=== PATIENT | male | born 1980 | race Caucasian/White ===

== ENCOUNTER 2023-01-23 08:16 | Outpatient (OUT) | payer BC, SELFPAY ==
[2023-01-23 08:41] LABS: Basophils Absolute Auto 0.1 10^3/uL (0.0-0.1); Basophils Percent Auto 0.8 % (0.2-2.0); Eosinophils Absolute Auto 0.3 10^3/uL (0.0-0.7); Eosinophils Percent Auto 4.4 % (0.9-7.0); Hematocrit 42.7 % (42.0-54.0); Hemoglobin 14.7 g/dL (14.0-18.0); Immature Granulocytes Abs Auto 0.01 10^3/uL (0.00-0.03); Immature Granulocytes Pct Auto 0.1 % (0.0-0.5); Lymphocytes Absolute Auto 2.3 10^3/uL (1.2-3.8); Lymphocytes Percent Auto 31.1 % (20.5-60.0); Mean Corpuscular HGB Conc 34.4 g/dL (29.9-35.2); Mean Corpuscular Hemoglobin 31.3 pg (25.9-34.0); Mean Platelet Volume 8.8 fL (9.5-13.5); Monocytes Absolute Auto 0.7 10^3/uL (0.3-0.8); Monocytes Percent Auto 9.5 % (1.7-12.0); Neutrophils Absolute Auto 3.9 10^3/uL (1.4-6.5); Neutrophils Percent Auto 54.1 % (43.0-75.0); Platelet Count 192 10^3/uL (150-450); Red Blood Count 4.69 10^6/uL (4.70-6.10); Red Cell Distribution Width 13.2 % (11.0-15.0); White Blood Count 7.2 10^3/uL (4.0-11.0)
[2023-01-23 09:29] LABS: Alanine Aminotransferase 61 U/L (16-63); Albumin Globulin Ratio 1.2; Albumin Level 4.1 g/dL (3.4-5.0); Alkaline Phosphatase 58 U/L (46-116); Anion Gap 15.3; Aspartate Amino Transferase 26 U/L (15-37); BUN Creatinine Ratio 13.4; Bilirubin Total 0.7 mg/dL (0.2-1.0); Calcium 8.7 mg/dL (8.5-10.1); Carbon Dioxide 25.9 mmol/L (21.0-32.0); Chloride 99 mmol/L (98-107); Chol HDL Ratio 5.2; Cholesterol 235 mg/dL (<=200); Estimated GFR (African America >60 (>=60); Estimated GFR (Non-African Ame >60 (>=60); Globulin 3.3 g/dL; Glucose 101 mg/dL (74-106); HDL Cholesterol 45 mg/dL (40-60); Potassium 4.2 mmol/L (3.5-5.1); Sodium 136 mmol/L (136-145); Total Protein 7.4 g/dL (6.4-8.2); Triglycerides 97 mg/dL (<=150); VLDL CHOLESTEROL 19.4 mg/dL
== END 2023-01-23 08:17 | disposition home or self-care (01) ==
PROVIDERS: PCP Internal Medicine; Visit Provider Internal Medicine
DX: Z00.00 Encounter for general adult medical examination without abnormal findings (principal)
CPT/HCPCS: 36415; 80053; 80061; 85025

== ENCOUNTER 2024-01-29 09:46 | Outpatient (OUT) | payer OTHER, SELFPAY ==
[2024-01-29 10:52] LABS: Alanine Aminotransferase 64 U/L (16-63); Albumin Globulin Ratio 1.1; Albumin Level 3.5 g/dL (3.4-5.0); Alkaline Phosphatase 64 U/L (46-116); Anion Gap 12.7; Aspartate Amino Transferase 25 U/L (15-37); Bilirubin Total 0.4 mg/dL (0.2-1.0); Calcium 8.9 mg/dL (8.5-10.1); Carbon Dioxide 26.5 mmol/L (21.0-32.0); Chloride 102 mmol/L (98-107); Cholesterol 211 mg/dL (<=200); Estimated GFR (African America >60 (>=60); Estimated GFR (Non-African Ame >60 (>=60); Globulin 3.2 g/dL; Glucose 97 mg/dL (74-106); HDL Cholesterol 42 mg/dL (40-60); Potassium 4.2 mmol/L (3.5-5.1); Sodium 137 mmol/L (136-145); Total Protein 6.7 g/dL (6.4-8.2); Triglycerides 100 mg/dL (<=150)
[2024-01-29 11:20] LABS: Basophils Absolute Auto 0.1 10^3/uL (0.0-0.1); Basophils Percent Auto 0.8 % (0.2-2.0); Eosinophils Absolute Auto 0.4 10^3/uL (0.0-0.7); Hematocrit 41.2 % (42.0-54.0); Hemoglobin 13.7 g/dL (14.0-18.0); Immature Granulocytes Abs Auto 0.04 10^3/uL (0.00-0.03); Immature Granulocytes Pct Auto 0.4 % (0.0-0.5); Lymphocytes Absolute Auto 2.7 10^3/uL (1.2-3.8); Lymphocytes Percent Auto 29.3 % (20.5-60.0); Mean Corpuscular HGB Conc 33.3 g/dL (29.9-35.2); Mean Corpuscular Volume 93.2 fL (80.0-94.0); Mean Platelet Volume 8.8 fL (9.5-13.5); Monocytes Absolute Auto 0.8 10^3/uL (0.3-0.8); Monocytes Percent Auto 8.5 % (1.7-12.0); Neutrophils Absolute Auto 5.1 10^3/uL (1.4-6.5); Platelet Count 264 10^3/uL (150-450); Red Blood Count 4.42 10^6/uL (4.70-6.10); Red Cell Distribution Width 13.6 % (11.0-15.0)
== END 2024-01-29 09:47 | disposition home or self-care (01) ==
PROVIDERS: PCP Internal Medicine; Visit Provider Internal Medicine
DX: Z00.00 Encounter for general adult medical examination without abnormal findings (principal)
CPT/HCPCS: 36415; 80053; 80061; 85025

== ENCOUNTER 2024-07-19 08:03 | Outpatient (OUT) | payer OTHER, SELFPAY ==
--- OUTSIDE RECORDS SUMMARY | 2024-07-19 08:17 | XMS_ITS | CCD ---
Author Organization [facility] Care Team Providers Care Sales Mgr Name Role Phone LOS, DR BAIRD Admitting Unavailable LOS, DR BAIRD Primary Care Unavailable LOS, DR BAIRD Consulting Michael CASTAÑEDA, DR BAIRD Attending Unavailable LOS, DR BAIRD Admitting Unavailable LOS, DR BAIRD Consulting Unavailable LOS, DR BAIRD Attending Unavailable SPENCER, DR LEONARD Dillard Consulting Michael Castañeda, Ralph Unavailable Medications Current Medications Medication Drug Class(es) Dates Sig (Normalized) Sig (Original) amLODIPine 5 mg oral tablet (4 sources) Dihydropyridine Calcium Channel Bhumika Start: 01-28-2024 take 5 mg by mouth once daily Amlodipine Active 5 MG PO Daily January 28, 2024 12:00am take 1 tablet by mouth once artemio y amLODIPine Besylate 5 MG TAKE 1 TABLET BY MOUTH EVERY DAY for 90 Active atorvastatin 80 mg oral tablet (4 sources) HMG-CoA Reductase Inhibitor Start: 01-28-2024 take 80 mg by mouth once daily Atorvastatin Active 80 MG PO Daily January 28, 2024 12:00am take 1 tablet by mar th every twenty-four hours Atorvastatin Calcium 80 MG 1 tablet Oral ly Once a day for 90 days Active take 1 tablet by mar th once daily in the evening Atorvastatin Calcium 40 MG TAKE 1 TABLET BY MOUTH EVERY EVENING Active benazepril hydrochloride 20 mg oral tablet (7 sources) Angiotensin Converting Enzyme Inhibitor Start: 01-28-2024 take 20 mg by mouth once daily Benazepril Active 20 MG PO Daily January 28, 2024 12:00am Start: 12-30-2021 take 1 tablet by mouth once da yamilet Problems Active Problems Problem Classification Problem Date Documented Da te Episodic/Chronic Disorders of lipid metabolism (5 sources) Familial hypercholesterole kerri; Translations: [Familial hypercholesterole kerri] Resolved: 11-07-2021 Chronic Essential hypertension (6 sources) Essential hypertension; Translations: [Essential (primary) hypertension] Chronic Other nutritional; endocrine; and metabolic disorders (3 sources) Obesity caused by energy imbalance; Translations: [Other obesity due to excess calories] Chronic Other nutritional; endocrine; and metabolic disorders (3 sources) Body mass index 30+ - obesity; Translations: [Body mass index (BMI) 34.0-34.9, adult] Chronic Other nutritional; endocrine; and metabolic disorders (1 source) Other obesity due to excess calories Chronic Other nutritional; endocrine; and metabolic disorders (1 source) Body mass index (BMI) 34.0-34.9, adult Chronic Substance-related disorders (4 sources) Nicotine dependence; Translations: [Nicotine dependence, cigarettes, uncomplicated] Chronic Past or Other Problems Problem Classification Problem Date Documented Da te Episodic/Chronic Other and unspecified benign neoplasm (4 sources) Benign lipomatous neoplasm of skin and subcutaneous tissue of trunk; Translations: [ERIKA LIPOMAT NEOPLSM SKIN SUBQ TRUNK] Onset: 12-14-2020 Episodic Results Test Name Value Interpretation Reference Range Facil ity CBC AUTO DIFFon 11-08-2021 BASO # 0.1 103/ul Normal 0.0-0.1 [facility] Comment on above: Performed By: #### C BC #### [facility] [address] [place] [address] Dr. Nestor Garcia Basophils/100 WBC (Bld) 0.9 % Normal 0.2-2.0 [facility] Comment on above: Performed By: #### C BC #### [facility] [address] [place] [address] Dr. Nestor Garcia EO # 0.4 103/ul Normal 0.0-0.7 [facility] Comment on above: Performed By: #### C BC #### [facility] [address] [place] [address] Dr. Nestor Garcia Eosinophils/100 WBC (Bld) 5.1 % Normal 0.9-7.0 [facility] Comment on above: Performed By: #### C BC #### [facility] [address] [place] [address] Dr. Nestor Garcia Erythrocyte distribution width (RBC) [Ratio] 13.3 % Normal 11.0-15.0 [facility] Comment on above: Performed By: #### C BC #### [facility] [address] [place] [address] Dr. Nestor Garcia Hematocrit (Bld) [Volume fraction] 43.9 % Normal 42.0-54.0 [facility] Comment on above: Performed By: #### C BC #### [facility] [address] [place] [address] Dr. Nestor Garcia Hemoglobin (Bld) [Mass/Vol] 14.6 g/dL Normal 14.0-18.[address] [facility] Comment on above: Performed By: #### C BC #### [facility] [address] [place] [address] Dr. Nestor Garcia IG # 0.02 10e3/ul Normal 0.00-0.03 [facility] Comment on above: Performed By: #### C BC #### [facility] [address] [place] [address] Dr. Nestor Garcia IG % 0.3 % Normal 0.0-0.5 [facility] Comment on above: Performed By: #### C BC #### [facility] [address] [place] [address] Dr. Nestor Garcia LYMPH # 2.4 103/ul Normal 1.2-3.[address] [facility] Comment on above: Performed By: #### C BC #### [facility] [address] [place] [address] Dr. Nestor Garcia Lymphocytes/100 WBC (Bld) 35.4 % Normal 20.5-60.0 [facility] Comment on above: Performed By: #### C BC #### [facility] [address] [place] [address] Dr. Nestor Garcia MANUAL DIFF REQ NO Normal [facility] Comment on above: Performed By: #### C BC #### [facility] [address] [place] [address] Dr. Nestor Garcia MCH (RBC) [Entitic mass] 31.5 pg Normal 25.9-34.0 [facility] Comment on above: Performed By: #### C BC #### [facility] [address] [place] [address] Dr. Nestor Garcia MCHC (RBC) [Mass/Vol] 33.3 g/dL Normal 29.9-35.2 [facility] Comment on above: Performed By: #### C BC #### [facility] [address] [address] [address] Nestor Garcia MCV (RBC) [Entitic vol] 94.8 fL Critically high 80.0-94.0 [facility] Comment on above: Performed By: #### C BC #### [facility] [address] [address] [address] Nestor Garcia MONO # 0.7 103/ul Normal 0.3-0.8 [facility] Comment on above: Performed By: #### C BC #### [facility] [address] [place] [address] Dr. Nestor Garcia Monocytes/100 WBC (Bld) 9.6 % Normal 1.7-12.0 [facility] Comment on above: Performed By: #### C BC #### [facility] [address] [place] [address] Dr. Nestor Garcia NEUT # 3.4 103/ul Normal 1.4-6.5 [facility] Comment on above: Performed By: #### C BC #### [facility] [address] [place] [address] Dr. Nestor Garcia Neutrophils/100 WBC (Bld) 48.7 % Normal 43.0-75.0 [facility] Comment on above: Performed By: #### C BC #### [facility] [address] [place] [address] Dr. Nestor Garcia Platelet mean volume (Bld) [Entitic vol] 8.8 fL Critically low 9.5-13.[address] [facility] Comment on above: Performed By: #### C BC #### [facility] [address] [place] [address] Dr. Nestor Garcia PLT 212 103/ul Normal 150-[address] [facility] Comment on above: Performed By: #### C BC #### [facility] [address] [place] [address] Dr. Nestor Garcia RBC 4.63 106/ul Critically low 4.70-6.10 [facility] Comment on above: Performed By: #### C BC #### [facility] [address] [address] [address] Nestor Garcia WBC 6.9 103/ul Normal 4.0-11.0 [facility] Comment on above: Performed By: #### C BC #### [facility] [address] [address] [address] Nestor Garica LIPID PROFILEon 11-08-2021 CHOL-HDL RATIO NORM SEE BELOW Normal [facility] Comment on above: Result Comment: 3.3 - 4.4 LOW RISK 4.4 - 7.1 AVERAGE RISK 7.1 - 11.0 MODERATE RISK >11.0 HIGH RISK Performed By: #### L IPID, CMP #### [facility] [address] [address] [address] Nestor Garcia Cholesterol [Mass/Vol] 197 mg/dL Normal <=200 [facility] Comment on above: Performed By: #### L IPID, CMP #### [facility] [address] [address] [address] Nestor Garcia Cholesterol in HDL [Mass/Vol] 37 mg/dL Critically low 40-60 [facility] Comment on above: Performed By: #### L IPID, CMP #### [facility] [address] [address] [address] Nestor Garcia Cholesterol in LDL [Mass/Vol] 141.2 mg/dL Normal [facility] Comment on above: Performed By: #### L IPID, CMP #### [facility] [address] [address] [address] Nestor Garcia Cholesterol.total/C holesterol in HDL [Mass ratio] 5.3 {ratio} Normal [facility] Comment on above: Performed By: #### L IPID, CMP #### [facility] [address] [address] [address] Nesotr Garcia HDL NORMAL > or = 60 mg/dl - LO W CARDIOVASCULAR RISK <40 mg/dl - HIGH CARDIOVASCULAR RISK Normal [facility] Comment on above: Performed By: #### L IPID, CMP #### [facility] [address] [place] [address] Dr. Nestor Garcia LDL CALC NORMAL SEE BELOW Normal [facility] Comment on above: Result Comment: <100 mg/dl OPTIMAL 100 - 129 mg/dl NEAR OR ABOVE OPTIMAL 130 - 159 mg/dl BORDERLINE HIGH 160 - 189 mg/dl HIGH >190 mg/dl VERY HIGH Performed By: #### L IPID, CMP #### [facility] [address] [address] [address] Nestor Garcia Triglyceride [Mass/Vol] 94 mg/dL Normal <=150 [facility] Comment on above: Performed By: #### L IPID, CMP #### [facility] [address] [place] [address] Dr. Nestor Garcia VLDL CALC 18.8 mg/dL Normal [facility] Comment on above: Performed By: #### L IPID, CMP #### [facility] [address] [place] [address] Dr. Nestor Garcia PROF 14(COMP METB)on 022 Albumin [Mass/Vol] 3.9 g/dL Normal 3.4-5.0 [facility] Comment on above: Performed By: #### L IPID, CMP #### [facility] [address] [place] [address] Dr. Nestor Garcia Albumin/Globulin [Mass ratio] 1.2 {ratio} Normal [facility] Comment on above: Performed By: #### L IPID, CMP #### [facility] [address] [place] [address] Dr. Nestor Garcia ALP [Catalytic activity/Vol] 51 U/L Normal 46-[address] [facility] Comment on above: Performed By: #### L IPID, CMP #### [facility] [address] [place] [address] Dr. Nestor Garcia ALT [Catalytic activity/Vol] 59 U/L Normal 16-63 [facility] Comment on above: Performed By: #### L IPID, CMP #### [facility] [address] [place] [address] Dr. Nestor Garcia Anion gap [Moles/Vol] 10.4 mmol/L Normal [facility] Comment on above: Performed By: #### L IPID, CMP #### [facility] [address] [place] [address] Dr. Nestor Garcia AST [Catalytic activity/Vol] 30 U/L Normal 15-37 [facility] Comment on above: Performed By: #### L IPID, CMP #### [facility] [address] [place] [address] Dr. Nestor Garcia Bilirubin [Mass/Vol] 0.5 mg/dL Normal 0.2-1.[address] [facility] Comment on above: Performed By: #### L IPID, CMP #### [facility] [address] [place] [address] Dr. Nestor Garcia Calcium [Mass/Vol] 9.1 mg/dL Normal 8.5-10.1 [facility] Comment on above: Performed By: #### L IPID, CMP #### [facility] [address] [place] [address] Dr. Nestor Garcia Chloride [Moles/Vol] 103 mmol/L Normal 98-107 [facility] Comment on above: Performed By: #### L IPID, CMP #### [facility] [address] [place] [address] Dr. Nestor Garcia CO2 [Moles/Vol] 28.8 mmol/L Normal 21.0-32.0 [facility] Comment on above: Performed By: #### L IPID, CMP #### [facility] [address] [place] [address] Dr. Nestor Garcia Creatinine [Mass/Vol] 0.78 mg/dL Normal 0.70-1.[address] [facility] Comment on above: Performed By: #### L IPID, CMP #### [facility] [address] [place] [address] Dr. Nestor Garcia EGFR-AF BHUTANESE >60 Normal >=60 [facility] Comment on above: Performed By: #### L IPID, CMP #### [facility] [address] [place] [address] Dr. Nestor Garcia EGFR-NON AF BHUTANESE >60 Normal >=60 [facility] Comment on above: Performed By: #### L IPID, CMP #### [facility] [address] [address] [address] Nestor Garcia Globulin (S) [Mass/Vol] 3.3 g/dL Normal [facility] Comment on above: Performed By: #### L IPID, CMP #### [facility] [address] [address] [address] Nestor Garcia Glucose [Mass/Vol] 105 mg/dL Normal 74-106 [facility] Comment on above: Performed By: #### L IPID, CMP #### [facility] [address] [place] [address] Dr. Nestor Garcia Potassium [Moles/Vol] 4.2 mmol/L Normal 3.5-5.1 [facility] Comment on above: Performed By: #### L IPID, CMP #### [facility] [address] [place] [address] Dr. Nestor Garcia Protein [Mass/Vol] 7.2 g/dL Normal 6.4-8.2 [facility] Comment on above: Performed By: #### L IPID, CMP #### [facility] [address] [place] [address] Dr. Nestor Garcia Sodium [Moles/Vol] 138 mmol/L Normal 136-145 [facility] Comment on above: Performed By: #### L IPID, CMP #### [facility] [address] [place] [address] Dr. Nestor Garcia Urea nitrogen [Mass/Vol] 17.0 mg/dL Normal 7.0-18.0 [facility] Comment on above: Performed By: #### L IPID, CMP #### [facility] [address] [place] [address] Dr. Nestor Garcia Urea nitrogen/Creatinine [Mass ratio] 21.8 mg/mg Normal [facility] Comment on above: Performed By: #### L IPID, CMP #### [facility] [address] [address] [address] Nestor Garcia CHESTon 12-16-2020 US CHEST EXAM: US CHEST HISTORY: Lipoma of skin and subcutaneous tissue of trunk ; palpable lump right anterior lower ribs COMPARISON: None. TECHNIQUE: Ultrasound evaluation of the anterior chest soft tissues. FINDINGS: Within the subcutaneous fat at the site of the palpable lump is a homogeneous 7.5 x 4.5 x 1.0 cm oval fatty structure with nearly imperceptible wall. No appreciable soft tissue component or significant vascularity. IMPRESSION: 1. Patient's palpable lump appears to correspond to a subcutaneous lipoma. No appreciable soft tissue component to suggest liposarcoma. Electronically authenticated by: LEONARD PALMER Date: 2020-12-16 07:35 Normal [facility] Vital Signs Date Time Vital Sign Value Performing Clinician Facility 01-28-2024 14:30-0400 Body height 187.96 cm [facility] 01-28-2024 14:30-0400 Body mass index (BMI) [Ratio] 35.4 kg/m2 [facility] 01-28-2024 14:30-0400 Body weight 124.96 kg [facility] 01-28-2024 14:30-0400 Diastolic blood pressure 90 mm[Hg] [facility] 01-28-2024 14:30-0400 Heart rate 98 /min [facility] 01-28-2024 14:30-0400 Respiratory rate 12 /min [facility] 01-28-2024 14:30-0400 Systolic blood pressure 141 mm[Hg] [facility] 01-22-2023 14:30-0400 Body height 185.42 cm [facility] Other [facility] Other 01-22-2023 14:30-0400 Body mass index (BMI) [Ratio] 34.09 kg/m2 Ralph Novitaz Other [facility] Other 01-22-2023 14:30-0400 Body weight 117.21 kg [facility] Other [facility] Other 01-22-2023 14:30-0400 Diastolic blood pressure 91 mm[Hg] Ralph Los Other [facility] Other 01-22-2023 14:30-0400 Respiratory rate 12 /min Ralph Los Other [facility] Other 01-22-2023 14:30-0400 Systolic blood pressure 149 mm[Hg] Ralph Castañeda Other [facility] Other Encounters Encounter Date Encounter Type Care Provider Facility Start: 01-28-2024 End: 01-28-[address] [facility] Work Phone: Start: 01-28-2024 End: 01-28-2024 Encounter for general adult medical examination without abnormal findings [facility] Start: 01-28-2024 End: 01-28-2024 Patient encounter procedure [facility] Work Phone: Start: 04-13-2023 End: 04-13-2023 ambulatory Ralph Castañeda Other [facility] Other Start: 04-13-2023 Telephone encounter Ralph MARTELL [facility] Start: 01-26-2023 End: 01-26-2023 ambulatory Ralph Castañeda Other [facility] Other Start: 01-26-2023 Telephone encounter Ralph MARTELL [facility] Start: 01-22-2023 End: 01-22-2023 ambulatory Ralph Castañeda Other [facility] Other Start: 01-22-2023 Encounter for genera l adult medical examination without abnormal findings Ralph Castañeda [facility] Start: 01-22-2023 Periodic preventive med est patient 40-64yrs Ralph Castañeda [facility] Start: 11-12-2021 Encounter for genera l adult medical examination without abnormal findings DR RALPH CASTAÑEDA [facility] Start: 11-08-2021 End: 11-09-[address] RALPH CASTAÑEDA Facility:[facility] Start: 11-08-2021 End: 11-09-2021 Encounter for general adult medical examination without abnormal findings DR RALPH CASTAÑEDA Facility:[facility] Start: 12-14-2020 End: 12-15-[address] RALPH CASTAÑEDA Facility:[facility] Plan of Treatment Date Care Activity Detail Author Comprehensive metabo lic 1999 panel - Serum or Plasma [facility] enter [facility] Immunizations Immunization Date Immunization Notes Care Provider Fa cility 11-23-2020 COVID-19 Vaccine Moncho ssen - Documentation Purposes Only Ralph Castañeda Other [facility] Payers Date Payer Category Payer Unknown [id number] [id number] 1980 Unknown [id number] [id number] 1960 Unknown [id number] Unknown [facility] [id number] 13 [id number] Social History Date Type Detail Facility Sex Assigned At [facility] Other Start: 1980 Sex Assigned At Male F [facility] Evaluation note 04-13-2023 Note Date & Type Note Facility 04-13-2023 Evaluation note Encounter Date Diagnosis Assessment Notes Mar, Familial hypercholesterolemia (ICD-10 - E78.01) [facility] Other Evaluation note 01-22-2023 Note Date & Type Note Facility 01-22-2023 Evaluation note Encounter Date Diagnosis Assessment Notes Dec, Wellness examination (ICD-10 - Z00.00) Healthy diet and exercise. Reviewed age-appropriate preventive testing recommended. Dec, Familial hypercholesterolemia (ICD-10 - E78.01) Instructed on diet and exercise with continued statin therapy.Discusse d the beneficial effects of lowering cholesterol in reducing the risk for cerebrovascular and cardiovascular disease. Dec, Primary hypertension (ICD-10 - I10) This patient is instructed to consume a healthy, low-fat, low-salt diet. They are also encouraged to continue exercise to achieve/maintain a normal BMI. 28 Kurt, 2023 Other obesity due to excess calories (ICD-10 - E66.09) This patient has been instructed on a low-fat, high-fiber diet. They are instructed to reduce calories, portion sizes and snacks. It is recommended that they exercise for 30 minutes, 3-5 times weekly. Dec, Body mass index [BMI] 34.0-34.9, adult (ICD-10 - Z68.34) Dec, Cigarette nicotine dependence without complication (ICD-10 - F17.210) This patient has been encouraged to quit tobacco use immediately. They are aware of the hazards associated with tobacco use, including but not limited to respiratory infections, vascular disease and cancers. [facility] Other Evaluation note Note Date & Type Note Facility Evaluation note No Information [facility] Other Evaluation note Note Date & Type Note Facility Evaluation note Diagnosis Onset Date Hypertension acute Wellness examination noneact [facility] Work Phone: History general Narrative - Reported Note Date & Type Note Facility History general Narrative - Reported Type Medical History Essential (primary) hypertension Medical History Benign lipomatous ne oplasm of skin and subcutaneous tissue of trunk Medical History Pure hypercholesterolemia, unspe cified Surgical History TONSILLECTOMY Hospitalization History SEE SURGICAL HX [facility] Other Summary Purpose Family History Relationship Condition Age at Onset Recorded Date/T shawn father Malignant neoplasm Unknown Heart disease Unknown Hypertension Unknown Advance Directives Advance Directive Response Recorded Date/ Time Advance Directives No July 26, 2023 3:26pm Chief Complaint and Reason for Visit Chief Complaint Wellness Reason for Visit Hypertension Wellness examination Additional Source Comments (unrecognized sect ion and content) No Status Records Found INFORMATION SOURCE (unrecogn ized section and content) DATE CREATED AUTHOR 11/15/2021 [facility] REASON FOR VISIT (unrecogniz ed section and content) [facility] Results[facility]ill Care Teams (unrecognized sec tion and content) Team Status: Active Member Role Status Dates Ralph Castañeda DO Primary Care Provider Active Team Status: Inactive Member Role Status Dates Ralph Castañeda DO Primary Care Provide r, Attending Provider Active Start: January 28, 2024 End: January 28, 2024 Goals (unrecognized section and content) Goals may be documented in a n alternate section FOR RECORDS PERTAINING TO PATIENTS WHO ARE OR HAVE BEEN ENROLLED IN A CHEMICAL DEPENDENCY/SUBSTANCEABUSE PROGRAM, SOME INFORMATION MAY BE OMITTED. This clinical summary was aggregated from multiple sources. Caution should be exercised in using it in the provision of clinical care. This summary normalizes information from multiple sources, and as a consequence, information in this document may materially change the coding, format and clinical context of patient data. In addition, data may be omitted in some cases. CLINICAL DECISIONS SHOULD BE BASED ON THE PRIMARY CLINICAL RECORDS. [facility] [employer] [facility]. provides no warranty or guarantee of the accuracy or completeness of information in this document.
[2024-07-19 08:22] LABS: Basophils Absolute Auto 0.1 10^3/uL (0.0-0.1); Basophils Percent Auto 0.9 % (0.2-2.0); Eosinophils Absolute Auto 0.5 10^3/uL (0.0-0.7); Hematocrit 45.2 % (42.0-54.0); Hemoglobin 15.1 g/dL (14.0-18.0); Immature Granulocytes Abs Auto 0.03 10^3/uL (0.00-0.03); Immature Granulocytes Pct Auto 0.4 % (0.0-0.5); Lymphocytes Absolute Auto 2.4 10^3/uL (1.2-3.8); Lymphocytes Percent Auto 29.3 % (20.5-60.0); Mean Corpuscular HGB Conc 33.4 g/dL (29.9-35.2); Mean Corpuscular Hemoglobin 31.7 pg (25.9-34.0); Mean Corpuscular Volume 94.8 fL (80.0-94.0); Mean Platelet Volume 8.8 fL (9.5-13.5); Monocytes Absolute Auto 0.7 10^3/uL (0.3-0.8); Monocytes Percent Auto 8.8 % (1.7-12.0); Neutrophils Absolute Auto 4.5 10^3/uL (1.4-6.5); Neutrophils Percent Auto 54.6 % (43.0-75.0); Platelet Count 236 10^3/uL (150-450); Red Blood Count 4.77 10^6/uL (4.70-6.10); Red Cell Distribution Width 13.4 % (11.0-15.0); White Blood Count 8.2 10^3/uL (4.0-11.0)
== END 2024-07-19 08:04 | disposition home or self-care (01) ==
PROVIDERS: PCP Internal Medicine; Visit Provider Internal Medicine
DX: D64.9 Anemia, unspecified (principal)
CPT/HCPCS: 36415; 85025

== ENCOUNTER 2025-02-09 13:11 | Outpatient (OUT) | payer BC, SELFPAY ==
--- OUTSIDE RECORDS SUMMARY | 2025-02-09 13:17 | XMS_ITS | CCD ---
Author Organization [facility] Care Team Providers Care Complaint Analyst Name Role Phone DR RALPH CASTAÑEDA Admitting Unavailable MADDY, DR BAIRD Primary Care Unavailable MADDY, DR BAIRD Consulting Unavailable MADDY, DR BAIRD Attending Unavailable MADDY, DR BAIRD Admitting Unavailable MADDY, DR BAIRD Consulting Unavailable MADDY, DR BAIRD Attending Unavailable SPENCER, DR LEONARD Dillard Consulting Ralph Mccabe Unavailable Ralph Castañeda DO Primary Care Provider [phone] Ralph Castañeda DO Attending Provider [phone] Medications Current Medications Medication Drug Class(es) Dates Sig (Normalized) Sig (Original) amLODIPine 10 mg oral tablet (10 sources) Dihydropyridine Calcium Channel Bhumika Start: 08-04-2024 take 1 tablet by mouth once daily Amlodipine 10 mg tablet Active 10 MG PO Daily August 04, 2024 4:04pm Complies with drug therapy Start: 04-20-2024 End: 08-04-2024 take 1 tablet by mouth once daily Amlodipine 5 mg tablet Discontinued 0 .ROUTE .COMPLEX April 20, 2024 7:16am August 04, 2024 4:04pm TAKE 1 TABLET BY MOUTH EVERY DAY Start: 01-28-2024 End: 04-20-2024 take 1 tablet by mouth once daily Amlodipine 5 mg tablet Discontinued 5 MG PO Daily January 28, 2024 12:00am April 20, 2024 7:16am take 1 tablet by mar th once daily amLODIPine Besylate 5 MG TAKE 1 TABLET BY MOUTH EVERY DAY for 90 Active atorvastatin 80 mg oral tablet (8 sources) HMG-CoA Reductase Inhibitor Start: 04-21-2024 take 1 tablet by mouth once daily Atorvastatin 80 mg tablet Active 0 .ROUTE .COMPLEX April 21, 2024 6:52am TAKE 1 TABLET BY MOUTH EVERY DAY FOR 90 DAYS Complies with drug therapy Start: 01-28-2024 End: 04-21-2024 take 1 tablet by mouth once daily Atorvastatin 80 mg tablet Discontinued 80 MG PO Daily January 28, 2024 12:00am April 21, 2024 6:52am take 1 tablet by mar th every twenty-four hours Atorvastatin Calcium 80 MG 1 tablet Orally Once a day for 90 days Active take 1 tablet by mar th once daily in the evening Atorvastatin Calcium 40 MG TAKE 1 TABLET BY MOUTH EVERY EVENING Active benazepril hydrochloride 20 mg oral tablet (11 sources) Angiotensin Converting Enzyme Inhibitor Start: 04-20-2024 take 1 tablet by mouth once daily Benazepril 20 mg tablet Active 0 .ROUTE .COMPLEX April 20, 2024 7:16am TAKE 1 TABLET BY MOUTH EVERY DAY Complies with drug therapy Start: 01-28-2024 End: 04-20-2024 take 1 tablet by mouth once daily Benazepril 20 mg tablet Discontinued 20 MG PO Daily January 28, 2024 12:00am April 20, 2024 7:16am Start: 12-30-2021 take 1 tablet by mar th once daily Completed/Discontinued Medications Medication Drug Class(es) Dates Sig (Normalized) Sig (Original) amoxicillin 875 mg oral tablet (2 sources) Penicillin-class Antibacterial Start: 08-04-2024 End: 01-26-2025 take 1 tablet by mouth twice daily Amoxicillin 875 mg tablet Discontinued 875 MG PO Twice daily 08 01August 04, 2024 1:00am January 26, 2025 2:30pm etodolac 500 mg oral tablet (2 sources) Nonsteroidal Anti-inflammatory Drug Start: 05-29-2024 End: 08-04-2024 take 1 tablet by mouth twice daily Etodolac 500 mg tablet Discontinued 500 MG PO Twice daily May 29, 2024 1:00am August 04, 2024 3:58pm valACYclovir 1000 mg oral tablet (2 sources) Herpesvirus Nucleoside Analog DNA Polymerase Inhibitor, Herpes Simplex Virus Nucleoside Analog DNA Polymerase Inhibitor, Herpes Zoster Virus Nucleoside Analog DNA Polymerase Inhibitor Start: 05-29-2024 End: 08-04-2024 Valacyclovir 1 gram tablet Discontinued 1000 MG PO Three times daily 15 01May 29, 2024 1:00am August 04, 2024 3:58pm Problems Active Problems Problem Classification Problem Date Documented Da te Episodic/Chronic Deficiency and other anemia (2 sources) Anemia; Translations: [Anemia, unspecified] 06-10-2024 Episodic Comment on above: Mild anemia (13.7), 44y/o in Jul, 2024 - colonoscopy Disorders of lipid metabolism (5 sources) Familial hypercholesterolemi a; Translations: [Familial hypercholesterolemi a] Resolved: 11-07-2021 Chronic Essential hypertension (11 sources) Essential hypertension; Translations: [Essential (primary) hypertension] [...] Body mass index (BMI) 34.0-34.9, adult Chronic Other nutritional; endocrine; and metabolic disorders (3 sources) Obesity; Translations: [Obesity, unspecified] 01-28-2024 Chronic Other nutritional; endocrine; and metabolic disorders (1 source) Obesity, unspecified; Translations: [Obesity, unspecified] 08-04-2024 Chronic Other screening for suspected conditions (not mental disorders or infectious disease) (1 source) Patient encounter status; Translations: [Encounter for screening for malignant neoplasm of colon] 01-26-2025 Episodic Residual codes; unclassified (3 sources) At risk of apnea; Translations: [Other specified personal risk factors, not elsewhere classified] 01-28-2024 Episodic Residual codes; unclassified (1 source) Other specified personal risk factors, not elsewhere classified; Translations: [Other specified conditions influencing health status] 08-04-2024 Episodic Substance-related disorders (4 sources) Nicotine dependence; Translations: [Nicotine dependence, cigarettes, uncomplicated] Chronic Viral infection (3 sources) Herpes zoster; Translations: [Zoster with other complications] 05-29-2024 Episodic Past or Other Problems Problem Classification Problem Date Documented Da te Episodic/Chronic Other and unspecified benign neoplasm (4 sources) Benign lipomatous neoplasm of skin and subcutaneous tissue of trunk; Translations: [ERIKA LIPOMAT NEOPLSM SKIN SUBQ TRUNK] Onset: 12-14-2020 Episodic Results Test Name Value Interpretation Reference Range Facil ity Basophils Auto (Bld) [#/Vol] on 07-19-2024 Basophils (Bld) [#/Vol] Automated basophil count 0.0-0.1 [facility] Basophils/100 WBC Auto (Bld) on 07-19-2024 Basophils/100 WBC (Bld) Automated basophil % 0.2-2.0 [facility] Eosinophils/100 WBC Auto (Bl d)on 07-19-2024 Eosinophils/100 WBC (Bld) Automated eosinophil % 0.9-7.0 [facility] Erythrocyte distribution wid th Auto (RBC) [Ratio]on 07-19-2024 Erythrocyte distribution width (RBC) [Ratio] Erythrocyte distribution width [Ratio] by Automated count 11.0-15.0 [facility] Hematocrit Auto (Bld) [Volum e fraction]on 07-19-2024 Hematocrit (Bld) [Volume fraction] Hematocrit [Volume Fraction] of Blood by Automated count 42.0-54.0 [facility] Hemoglobin [Mass/volume] in Bloodon 07-19-2024 Hemoglobin (Bld) [Mass/Vol] Hemoglobin [Mass/volume] in Blood 14.0-18.0 [facility] - Hematology and Cell countson 07-19-2024 Immature granulocytes/100 WBC (Bld) 0.4 % 0.0-0.5 [facility] Leukocytes [#/volume] correc raina for nucleated erythrocytes in Blood by Automated counon 07-19-2024 WBC corrected for nucl RBC Auto (Bld) [#/Vol] Leukocytes [#/volume] corrected for nucleated erythrocytes in Blood by Automated coun 4.0-11.0 [facility] Lymphocytes Auto (Bld) [#/Vo l]on 07-19-2024 Lymphocytes (Bld) [#/Vol] Lymphocytes [#/volume] in Blood by Automated count 1.2-3.8 [facility] Lymphocytes/100 WBC Auto (Bl d)on 07-19-2024 Lymphocytes/100 WBC (Bld) Lymphocytes/100 leukocytes in Blood by Automated count 20.5-60.0 [facility] MCH Auto (RBC) [Entitic mass ]on 07-19-2024 MCH (RBC) [Entitic mass] MCH [Entitic mass] by Automated count 25.9-34.0 [facility] MCHC Auto (RBC) [Mass/Vol]on 07-19-2024 MCHC (RBC) [Mass/Vol] MCHC [Mass/volume] by Automated count 29.9-35.2 [facility] MCV Auto (RBC) [Entitic vol] on 07-19-2024 MCV (RBC) [Entitic vol] MCV [Entitic volume] by Automated count High 80.0-94.0 [facility] Monocytes Auto (Bld) [#/Vol] on 07-19-2024 Monocytes (Bld) [#/Vol] Automated blood monocyte count 0.3-0.8 [facility] Monocytes/100 WBC Auto (Bld) on 07-19-2024 Monocytes/100 WBC (Bld) Automated monocyte % 1.7-12.0 [facility] Neutrophils Auto (Bld) [#/Vo l]on 07-19-2024 Neutrophils (Bld) [#/Vol] Neutrophils [#/volume] in Blood by Automated count 1.4-6.5 [facility] Neutrophils/100 WBC Auto (Bl d)on 07-19-2024 Neutrophils/100 WBC (Bld) Automated neutrophil % 43.0-75.0 [facility] No Panel Informationon 07-19 Eosinophils # (Auto) 0.5 10 3/uL 0.0-0.7 [facility] Immature Granulocyte # (Auto) 0.03 10 3/uL 0.00-0.03 [facility] Platelet mean volume Auto (B ld) [Entitic vol]on 07-19-2024 Platelet mean volume (Bld) [Entitic vol] Platelet mean volume [Entitic volume] in Blood by Automated count Low 9.5-13.5 [facility] Platelets Auto (Bld) [#/Vol] on 07-19-2024 Platelets (Bld) [#/Vol] Platelets [#/volume] in Blood by Automated count 150-450 [facility] RBC Auto (Bld) [#/Vol]on RBC (Bld) [#/Vol] Erythrocytes [#/volume] in Blood by Automated count 4.70-6.10 [facility] CBC AUTO DIFFon 05-14-2022 BASO # 0.1 103/ul Normal 0.0-0.1 [facility] Comment on above: Performed By: #### C BC #### [facility] [address] [place] [address] Dr. Nestor Garcia Basophils/100 WBC (Bld) 0.9 % Normal 0.2-2.0 [facility] Comment on above: Performed By: #### C BC #### [facility] [address] [place] [address] Dr. Nestor Garcia EO # 0.4 103/ul Normal 0.0-0.7 [facility] Comment on above: Performed By: #### C BC #### [facility] [address] [place] [address] Dr. Nestor Garcia Eosinophils/100 WBC (Bld) 5.1 % Normal 0.9-7.0 [facility] Comment on above: Performed By: #### C BC #### [facility] [address] [place] [address] Dr. Nestor Garcia Erythrocyte distribution width (RBC) [Ratio] 13.3 % Normal 11.0-15.0 [facility] Comment on above: Performed By: #### C BC #### [facility] [address] [place] [address] Dr. Nestor Garcia Hematocrit (Bld) [Volume fraction] 43.9 % Normal 42.0-54.0 [facility] Comment on above: Performed By: #### C BC #### [facility] [address] [place] [address] Dr. Nestor Garcia Hemoglobin (Bld) [Mass/Vol] 14.6 g/dL Normal 14.0-18.0 [facility] Comment on above: Performed By: #### C BC #### [facility] [address] [place] [address] Dr. Nestor Garcia IG # 0.02 10e3/ul Normal 0.00-0.03 [facility] Comment on above: Performed By: #### C BC #### [facility] [address] [place] [address] Dr. Nestor Garcia IG % 0.3 % Normal 0.0-0.5 [facility] Comment on above: Performed By: #### C BC #### [facility] [address] [place] [address] Dr. Nestor Garcia LYMPH # 2.4 103/ul Normal 1.2-3.8 [facility] Comment on above: Performed By: #### C BC #### [facility] [address] [place] [address] Dr. Nestor Garcia Lymphocytes/100 WBC (Bld) 35.4 % Normal 20.5-60.0 [facility] Comment on above: Performed By: #### C BC #### [facility] [address] [place] [address] Dr. Nestor Garcia MANUAL DIFF REQ NO Normal [facility] Comment on above: Performed By: #### C BC #### [facility] [address] [place] [address] Dr. Nestor Garcia MCH (RBC) [Entitic mass] 31.5 pg Normal 25.9-34.0 [facility] Comment on above: Performed By: #### C BC #### [facility] [address] [place] [address] Dr. Nestor Garcia MCHC (RBC) [Mass/Vol] 33.3 g/dL Normal 29.9-35.2 [facility] Comment on above: Performed By: #### C BC #### [facility] [address] [place] [address] Dr. Nestor Garcia MCV (RBC) [Entitic vol] 94.8 fL Critically high 80.0-94.0 [facility] Comment on above: Performed By: #### C BC #### [facility] [address] [place] [address] Dr. Nestor Garcia MONO # 0.7 103/ul Normal 0.3-0.8 [facility] Comment on above: Performed By: #### C BC #### [facility] [address] [place] [address] Dr. Nestor Garcia Monocytes/100 WBC (Bld) 9.6 % Normal 1.7-12.0 [facility] Comment on above: Performed By: #### C BC #### [facility] [address] [address] [address] Nestor Garcia NEUT # 3.4 103/ul Normal 1.4-6.5 [facility] Comment on above: Performed By: #### C BC #### [facility] [address] [address] [address] Nestor Garcia Neutrophils/100 WBC (Bld) 48.7 % Normal 43.0-75.0 [facility] Comment on above: Performed By: #### C BC #### [facility] [address] [address] [address] Nestor Garcia Platelet mean volume (Bld) [Entitic vol] 8.8 fL Critically low 9.5-13.5 [facility] Comment on above: Performed By: #### C BC #### [facility] [address] [address] [address] Nestor Garcia PLT 212 103/ul Normal 150-450 [facility] Comment on above: Performed By: #### C BC #### [facility] [address] [address] [address] Nestor Garcia RBC 4.63 106/ul Critically low 4.70-6.10 [facility] Comment on above: Performed By: #### C BC #### [facility] [address] [address] [address] Nestor Garcia WBC 6.9 103/ul Normal 4.0-11.0 [facility] Comment on above: Performed By: #### C BC #### [facility] [address] [address] [address] Nestor Garcia LIPID PROFILEon 11-08-2021 CHOL-HDL RATIO NORM SEE BELOW Normal [facility] Comment on above: Result Comment: 3.3 - 4.4 LOW RISK 4.4 - 7.1 AVERAGE RISK 7.1 - 11.0 MODERATE RISK >11.0 HIGH RISK Performed By: #### L IPID, CMP #### [facility] [address] [address] [address] Nestor Garcia Cholesterol [Mass/Vol] 197 mg/dL Normal <=200 [facility] Comment on above: Performed By: #### L IPID, CMP #### [facility] [address] [address] [address] Nestor Garcia Cholesterol in HDL [Mass/Vol] 37 mg/dL Critically low 40-60 [facility] Comment on above: Performed By: #### L IPID, CMP #### [facility] [address] [address] [address] Nestor Garcia Cholesterol in LDL [Mass/Vol] 141.2 mg/dL Normal [facility] Comment on above: Performed By: #### L IPID, CMP #### [facility] [address] [place] [address] Dr. Nestor Garcia Cholesterol.total/C holesterol in HDL [Mass ratio] 5.3 {ratio} Normal [facility] Comment on above: Performed By: #### L IPID, CMP #### [facility] [address] [address] [address] Nestor Garcia HDL NORMAL > or = 60 mg/dl - LOW CARDIOVASCULAR RISK <40 mg/dl - HIGH CARDIOVASCULAR RISK Normal [facility] Comment on above: Performed By: #### L IPID, CMP #### [facility] [address] [place] [address] Dr. Nestor Garcia LDL CALC NORMAL SEE BELOW Normal [facility] Comment on above: Result Comment: <100 mg/dl OPTIMAL 100 - 129 mg/dl NEAR OR ABOVE OPTIMAL 130 - 159 mg/dl BORDERLINE HIGH 160 - 189 mg/dl HIGH >190 mg/dl VERY HIGH Performed By: #### L IPID, CMP #### [facility] [address] [address] [address] Nestor Garcia Triglyceride [Mass/Vol] 94 mg/dL Normal <=150 [facility] Comment on above: Performed By: #### L IPID, CMP #### [facility] [address] [place] [address] Dr. Nestor Garcia VLDL CALC 18.8 mg/dL Normal [facility] Comment on above: Performed By: #### L IPID, CMP #### [facility] [address] [address] [address] Nestor Garcia PROF 14(COMP METB)on 022 Albumin [Mass/Vol] 3.9 g/dL Normal 3.4-5.0 [facility] Comment on above: Performed By: #### L IPID, CMP #### [facility] [address] [address] [address] Nestor Garcia Albumin/Globulin [Mass ratio] 1.2 {ratio} Normal [facility] Comment on above: Performed By: #### L IPID, CMP #### [facility] [address] [address] [address] Nestor Garcia ALP [Catalytic activity/Vol] 51 U/L Normal 46-116 [facility] Comment on above: Performed By: #### L IPID, CMP #### [facility] [address] [address] [address] Nestor Garcia ALT [Catalytic activity/Vol] 59 U/L Normal 16-63 [facility] Comment on above: Performed By: #### L IPID, CMP #### [facility] [address] [address] [address] Nestor Garcia Anion gap [Moles/Vol] 10.4 mmol/L Normal [facility] Comment on above: Performed By: #### L IPID, CMP #### [facility] [address] [address] [address] Nestor Garcia AST [Catalytic activity/Vol] 30 U/L Normal 15-37 [facility] Comment on above: Performed By: #### L IPID, CMP #### [facility] [address] [address] [address] Nestor Garcia Bilirubin [Mass/Vol] 0.5 mg/dL Normal 0.2-1.0 [facility] Comment on above: Performed By: #### L IPID, CMP #### [facility] [address] [address] [address] Nestor Garcia Calcium [Mass/Vol] 9.1 mg/dL Normal 8.5-10.1 [facility] Comment on above: Performed By: #### L IPID, CMP #### [facility] [address] [address] [address] Nestor Garcia Chloride [Moles/Vol] 103 mmol/L Normal 98-107 [facility] Comment on above: Performed By: #### L IPID, CMP #### [facility] [address] [place] [address] Dr. Nestor Garcia CO2 [Moles/Vol] 28.8 mmol/L Normal 21.0-32.0 [facility] Comment on above: Performed By: #### L IPID, CMP #### [facility] [address] [place] [address] Dr. Nestor Garcia Creatinine [Mass/Vol] 0.78 mg/dL Normal 0.70-1.30 [facility] Comment on above: Performed By: #### L IPID, CMP #### [facility] [address] [place] [address] Dr. Nestor Garcia EGFR-AF PANAMANIAN >60 Normal >=60 [facility] Comment on above: Performed By: #### L IPID, CMP #### [facility] [address] [place] [address] Dr. Nestor Garcia EGFR-NON AF PANAMANIAN >60 Normal >=60 [facility] Comment on above: Performed By: #### L IPID, CMP #### [facility] [address] [place] [address] Dr. Nestor Garcia Globulin (S) [Mass/Vol] 3.3 g/dL Normal [facility] Comment on above: Performed By: #### L IPID, CMP #### [facility] [address] [place] [address] Dr. Nestor Garcia Glucose [Mass/Vol] 105 mg/dL Normal 74-106 [facility] Comment on above: Performed By: #### L IPID, CMP #### [facility] [address] [place] [address] Dr. Nestor Garcia Potassium [Moles/Vol] 4.2 mmol/L Normal 3.5-5.1 [facility] Comment on above: Performed By: #### L IPID, CMP #### [facility] [address] [address] [address] Nestor Garcia Protein [Mass/Vol] 7.2 g/dL Normal 6.4-8.2 [facility] Comment on above: Performed By: #### L IPID, CMP #### [facility] [address] [place] [address] Dr. Nestor Garcia Sodium [Moles/Vol] 138 mmol/L Normal 136-145 [facility] Comment on above: Performed By: #### L IPID, CMP #### [facility] [address] [place] [address] Dr. Nestor Garcia Urea nitrogen [Mass/Vol] 17.0 mg/dL Normal 7.0-18.0 [facility] Comment on above: Performed By: #### L IPID, CMP #### [facility] [address] [place] [address] Dr. Nestor Garcia Urea nitrogen/Creatinine [Mass ratio] 21.8 mg/mg Normal [facility] Comment on above: Performed By: #### L IPID, CMP #### [facility] [address] [place] [address] Dr. Nestor Garcia CHESTon 12-16-2020 US CHEST [...] by: LEONARD PALMER Date: 2020-12-16 07:35 Normal [facility] Vital Signs Date Time Vital Sign Value Performing Clinician Facility 01-26-2025 14:33-0400 Body height 187.96 cm Ralph Castañeda DO Work Phone: [facility] 01-26-2025 14:33-0400 Body mass index (BMI) [Ratio] 35.4 kg/m2 Ralph Ball DO Work Phone: [facility] 01-26-2025 14:33-0400 Body weight 125.24 kg Ralph Ball DO Work Phone: [facility] 01-26-2025 14:33-0400 Diastolic blood pressure 88 mm[Hg] Ralph Ball DO Work Phone: [facility] 01-26-2025 14:33-0400 Heart rate 96 /min Ralph Ball DO Work Phone: [facility] 01-26-2025 14:33-0400 Respiratory rate 12 /min Ralph Ball DO Work Phone: [facility] 01-26-2025 14:33-0400 Systolic blood pressure 134 mm[Hg] Ralph Ball DO Work Phone: [facility] 08-04-2024 14:49-0500 Body height 187.96 cm [facility] 08-04-2024 14:49-0500 Body mass index (BMI) [Ratio] 36.5 kg/m2 [facility] 08-04-2024 14:49-0500 Body weight 128.93 kg [facility] 08-04-2024 14:49-0500 Diastolic blood pressure 91 mm[Hg] [facility] 08-04-2024 14:49-0500 Heart rate 91 /min [facility] 08-04-2024 14:49-0500 Respiratory rate 12 /min [facility] 08-04-2024 14:49-0500 Systolic blood pressure 138 mm[Hg] [facility] 05-29-2024 15:45-0500 Body height 187.96 cm [facility] 05-29-2024 15:45-0500 Body mass index (BMI) [Ratio] 36.7 kg/m2 [facility] 05-29-2024 15:45-0500 Body weight 129.72 kg [facility] 05-29-2024 15:45-0500 Diastolic blood pressure 96 mm[Hg] [facility] 05-29-2024 15:45-0500 Heart rate 97 /min [facility] 05-29-2024 15:45-0500 Respiratory rate 12 /min [facility] 05-29-2024 15:45-0500 Systolic blood pressure 151 mm[Hg] [facility] 01-28-2024 14:30-0400 Body height 187.96 cm [facility] 01-28-2024 14:30-0400 Body mass index (BMI) [Ratio] 35.4 kg/m2 [facility] 01-28-2024 14:30-0400 Body weight 124.96 kg [facility] 01-28-2024 14:30-0400 Diastolic blood pressure 90 mm[Hg] [facility] 01-28-2024 14:30-0400 Heart rate 98 /min [facility] 01-28-2024 14:30-0400 Respiratory rate 12 /min [facility] 01-28-2024 14:30-0400 Systolic blood pressure 141 mm[Hg] [facility] 01-22-2023 14:30-0400 Body height 185.42 cm Ralph Ball Other [facility] [employer] Other 01-22-2023 14:30-0400 Body mass index (BMI) [Ratio] 34.09 kg/m2 Ralph Ball Other [facility] [employer] Other 01-22-2023 14:30-0400 Body weight 117.21 kg Ralph Ball Other [facility] [employer] Other 01-22-2023 14:30-0400 Diastolic blood pressure 91 mm[Hg] Ralph Ball Other [facility] [employer] Other 01-22-2023 14:30-0400 Respiratory rate 12 /min Ralph Ball Other [facility] [employer] Other 01-22-2023 14:30-0400 Systolic blood pressure 149 mm[Hg] Ralph Castañeda Other [email or web address] Other Encounters Encounter Date Encounter Type Care Provider Facility Start: 01-26-2025 End: 01-26-2025 ambulatory Ralph Castañeda DO Work Phone: [facility] Work Phone: Start: 01-26-2025 End: 01-26-2025 Patient encounter procedure Ralph Castañeda DO -[facility] Work Phone: Start: 01-26-2025 End: 01-26-2025 Patient encounter status Ralph Castañeda DO [facility] Start: 08-04-2024 End: 08-04-2024 ambulatory [facility] Work Phone: Start: 08-04-2024 End: 08-04-2024 Patient encounter procedure [facility] Physician [facility] Work Phone: Start: 07-19-2024 Non-patient / Non-visit [facility] Physician [facility] Work Phone: Start: 05-29-2024 End: 05-29-2024 Patient encounter procedure [facility] Physician [facility] Work Phone: Start: 01-28-2024 End: 01-28-2024 ambulatory [facility] Work Phone: Start: 01-28-2024 End: 01-28-2024 Encounter for general adult medical examination without abnormal findings [facility] Start: 01-28-2024 End: 01-28-2024 Patient encounter procedure [facility] Physician [facility] Work Phone: Start: 04-13-2023 End: 04-13-2023 ambulatory Ralph Castañeda Other [email or web address] Other Start: 04-13-2023 Telephone encounter Ralph Castañeda [facility] Start: 01-26-2023 End: 08-01-2023 ambulatory Ralph Castañeda Other [email or web address] Other Start: 01-26-2023 Telephone encounter Ralph Castañeda [facility] Start: 01-22-2023 End: 01-22-2023 ambulatory Ralph Castañeda Other [email or web address] Other Start: 01-22-2023 Encounter for genera l adult medical examination without abnormal findings Ralph Castañeda [facility] Start: 01-22-2023 Periodic preventive med est patient 40-64yrs Ralph Castañeda [facility] Start: 11-12-2021 Encounter for genera l adult medical examination without abnormal findings DR RALPH CASTAÑEDA [facility] Start: 11-08-2021 End: 11-09-[address] RALPH CASTAÑEDA Facility:[facility] Start: 11-08-2021 End: 11-09-2021 Encounter for general adult medical examination without abnormal findings DR RALPH CASTAÑEDA Facility:[facility] Start: 12-14-2020 End: 12-15-[address] RALPH CASTAÑEDA Facility:[facility] Plan of Treatment Date Care Activity Detail Author Comprehensive metabo lic 1999 panel - Serum or Plasma [facility] enter Comprehensive metabo lic 1999 panel - Serum or Plasma [facility] enter [facility] Immunizations Immunization Date Immunization Notes Care Provider Matt juan 11-23-2020 COVID-19 Vaccine Moncho ssen - Documentation Purposes Only Ralph Castañeda Other [facility] Payers Date Payer Category Payer Unknown [id number] [id number] 1980 Unknown [id number] 1960 Unknown [id number] Unknown MMO [id number] Unknown Patrick BC/BS [id number] Social History Date Type Detail Facility Sex Assigned At [email or web address] Other Start: 1980 Sex Assigned At Male F [facility] Work Phone: Start: 08-04-2024 Sex Male (finding) [facility] Evaluation note 05-29-2024 Note Date & Type Note Facility 05-29-2024 Evaluation note Diagnosis Onset Date Resolution Herpes zoster complicated acute May 29 3:38pm Hypertension acute May 3:38pm At risk for sleep apnea acute F ebruary 2024 2:30pm Hypertension acute July 2:30pm Obesity acute August 04, 2024 2:30pm [facility] Work Phone: Evaluation note 04-13-2023 Note Date & Type Note Facility 04-13-2023 Evaluation note Encounter Date Diagnosis Assessment Notes Mar, Familial hypercholesterolemia (ICD-10 - E78.01) [email or web address] Other Evaluation note 01-22-2023 Note Date & [...] continue exercise to achieve/maintain a normal BMI. Dec, Other obesity due to excess calories (ICD-10 [...] to respiratory infections, vascular disease and cancers. [email or web address] Other Evaluation note Note Date & Type Note Facility Evaluation note No Information [place] [employer] Other Evaluation note Note Date & Type Note Facility Evaluation note Diagnosis Onset Date Hypertension acute Wellness examination noneact natalya [facility] Work Phone: Evaluation note Note Date & Type Note Facility Evaluation note Diagnosis Onset Date Resolution At risk for sleep apnea acute A [id number] 2:28pm Hypertension acute January 26, 2025 2:28pm Obesity acute January 26 2:28pm Screening for colon cancer noneactive January 26, 2025 2:28pm Wellness examination noneactive 2024 2:28pm [facility] [employer] Work Phone: History general Narrative - Reported Note Date & Type Note Facility History general Narrative - Reported Type Medical History Essential (primary) hypertension Medical History Benign lipomatous ne oplasm of skin and subcutaneous tissue of trunk Medical History Pure hypercholesterolemia, unspe cified Surgical History TONSILLECTOMY Hospitalization History SEE SURGICAL HX [email or web address] Other Reason for referral (narrative) Note Date & Type Note Facility Reason for referral (narrative) No reason for referral information available [facility] Work Phone: Summary Purpose Family History Relationship Condition Age at Onset Recorded Date/T shawn father Malignant neoplasm Unknown Heart disease Unknown Hypertension Unknown Advance Directives Advance Directive Response Recorded Date/ Time Advance Directives No July 26, 2023 3:26pm Advance Directive Response Recorded Date/ Time Advance Directives No July 26, 2023 2:26pm Chief Complaint and Reason for Visit Chief Complaint Wellness Reason for Visit Hypertension Wellness examination Chief Complaint Admit Date shingles May 29, 2024 3 :38pm 6 month f/u August 04, 2024 2 :30pm Reason for Visit Admit Date Herpes zoster complicated May 29, 2024 3:38pm Hypertension May 29, 2024 3 :38pm At risk for sleep apnea August 04 2:30pm Hypertension August 04, 2024 2 :30pm Obesity August 04, 2024 2 :30pm Chief Complaint Admit Date wellness January 26, 2025 2:2 8pm Reason for Visit Admit Date At risk for sleep apnea January 26, 2025 2:28pm Hypertension January 26, 2025 2:2 8pm Obesity January 26, 2025 2:2 8pm Screening for colon cancer January 26 025 2:28pm Wellness examination January 26, 2025 2: 28pm Additional Source Comments (unrecognized sect ion and content) No Status Records Found INFORMATION SOURCE (unrecogn ized section and content) DATE CREATED AUTHOR 11/15/2021 [employer] REASON FOR VISIT (unrecogniz ed section and content) [facility] ResultsRefill Care Teams (unrecognized sec tion and content) Team Status: Active Member Role Status Dates Ralph Castañeda DO Primary Care Provider Active Team Status: Inactive Member Role Status Dates Ralph Castañeda DO Primary Care Provide r, Attending Provider Active Start: January 28, 2024 End: January 28, 2024 Team Status: Inactive Member Role Status Dates Ralph Castañeda DO Primary Care Provide r, Attending Provider Active Start: May 29, 2024 End: May 29, 2024 Team Status: Active Member Role Status Dates Ralph Castañeda DO Primary Care Provide r, Attending Provider Active Start: July 19, 2024 Team Status: Inactive Member Role Status Dates Ralph Castañeda DO Primary Care Provide r, Attending Provider Active Start: August 04, 2024 End: August 04, 2024 Team Status: Inactive Member Role Status Dates Ralph Castañeda DO Primary Care Provider Active Start: January 26, 2025 End: January 26, 2025 Ralph Castañeda DO Attending Provider Active Sta rt: January 26, 2025 End: January 26, 2025 Goals (unrecognized section and content) Goals may [...] BE BASED ON THE PRIMARY CLINICAL RECORDS. [employer] provides no warranty or guarantee of the accuracy or completeness of information in this document.
[2025-02-09 13:48] LABS: Hematocrit 41.8 % (42.0-54.0); Hemoglobin 14.3 g/dL (14.0-18.0); Immature Granulocytes Abs Auto 0.02 10^3/uL (0.00-0.03); Immature Granulocytes Pct Auto 0.2 % (0.0-0.5); Lymphocytes Absolute Auto 2.6 10^3/uL (1.2-3.8); Mean Corpuscular HGB Conc 34.2 g/dL (29.9-35.2); Mean Corpuscular Hemoglobin 31.2 pg (25.9-34.0); Mean Corpuscular Volume 91.3 fL (80.0-94.0); Platelet Count 176 10^3/uL (150-450); Red Blood Count 4.58 10^6/uL (4.70-6.10); White Blood Count 8.6 10^3/uL (4.0-11.0)
[2025-02-09 13:51] LABS: Alanine Aminotransferase 74 U/L (16-63); Albumin Globulin Ratio 1.1; Albumin Level 3.8 g/dL (3.4-5.0); Alkaline Phosphatase 70 U/L (46-116); Anion Gap 12.4; Aspartate Amino Transferase 28 U/L (15-37); Blood Urea Nitrogen 12.0 mg/dL (7.0-18.0); Calcium 9.1 mg/dL (8.5-10.1); Carbon Dioxide 24.7 mmol/L (21.0-32.0); Chloride 105 mmol/L (98-107); Cholesterol 227 mg/dL (<=200); Estimated GFR (African America >60 (>=60 mL/min/1.73m^2); Estimated GFR (Non-African Ame >60 (>=60 mL/min/1.73m^2); Globulin 3.4 g/dL; Glucose 93 mg/dL (74-106); HDL Cholesterol 38 mg/dL (40-60); Potassium 4.1 mmol/L (3.5-5.1); Sodium 138 mmol/L (136-145); Total Protein 7.2 g/dL (6.4-8.2); Triglycerides 79 mg/dL (<=150); VLDL CHOLESTEROL 15.8 mg/dL
== END 2025-02-09 13:12 | disposition home or self-care (01) ==
LOC: LAB 13:14
PROVIDERS: PCP Internal Medicine; Visit Provider Internal Medicine
DX: Z00.00 Encounter for general adult medical examination without abnormal findings (principal)
CPT/HCPCS: 36415; 80053; 80061; 85025